=== PATIENT | female | born 1985 | race African-American/Black ===

== ENCOUNTER 2018-10-29 09:16 | Inpatient (IN) | payer BC, OTHER ==
[2018-10-29 09:49] VITALS: BMI 30.9
[2018-10-29] MEDS ORDERED: hydrALAZINE 20 MG/ML VIAL SLOW IVP PRN ×3 (10:21→16:17)
[2018-10-29] MEDS ORDERED: Betamet Acet/Betamet Na Ph 30 MG/5 ML VIAL IM SCH (10:30)
[2018-10-29] MEDS ORDERED: Betamet Acet/Betamet Na Ph 30 MG/5 ML VIAL ONE (10:33)
--- NOTE | 2018-10-29 10:38 | PDOC.FPROB ---
FMR OB H&P: HPI - History of Present Illness Chief Complaint: BPP 2/8 at outside facility Indentification: 33 year old at 35.1 wks by LMP/10.4 wk sono History of Present Illness: 33 year old at 35.1 wks by LMP/10.4 wk sono presents to L&D to for further evaluation/management after having BPP done this morning which was 2/8. Two points given only for gross movement. NATTY reported at checkout was <2 cm. However, received records which show DVP 2.47 cm. Breech presentation noted. Normal S/D ratio. Patient getting weekly testing for cHTN. She did not have a diagnosis of HTN prior to ; however, she had several elevated BP's in clinic prior to 20 wks and was subsequently diagnosed with cHTN. Patient checks BP at home and reports BP 120-130's/80's. Patient denies any other significant PMH. She endorses good fluid intake and movement. Patient denies vaginal bleeding, vaginal discharge, LoF, or contractions. Primary Care Physician: JOSE Perla FMR OB H&P: Current - Care : 2 Para: 1001 Gestational age: 35.1 wks Due date: 12/02/2018 Dating Criteria: LMP/10.4 wk sono - OB Labs Blood type: B RH: positive Antibody Screen: negative HIV: negative RPR: negative HepBsAg: negative Rubella: immune Gonorrhea: negative Chlamydia: negative Pap Smear: NILM, HPV negative 1 hour gtt: 106 GBS: unknown FMR OB H&P: History - Past Medical History PMH: cHTN Denies asthma, heart disease, or other significant PMH - OB History OB History: cHTN AMA at time of delivery - [employer] History [employer] History: No history of STD's or PID Patient with CIN2/HSIL in 2004, but had normal Pap smear during this - Surgical History Sx History: Denies - Social History Social History: Denies alcohol, tobacco, or drug use - Family History Family History: Denies any significant FH to include DM and HTN FMR OB H&P: Medications - Current Home Medications: Medication Instructions Recorded Confirmed Type Pnv No.95/Ferrous Fum/Folic AC 1 each PO DAILY 10/29/18 10/29/18 History [ [place]] Allergies/Adverse Reactions: Allergies Allergy/AdvReac Type Severity Reaction Status Date / Time No Known Allergies Allergy Unverified 10/29/18 09:50 FMR OB H&P: ROS - Review of Systems General: denies: fever/chills, weight/appetite/sleep changes ENT: denies: rhinorrhea, sore throat Cardiovascular: denies: chest pain, palpitation, edema Respiratory: denies: congestion, shortness of breath Gastrointestinal: denies: abdominal pain, diarrhea Genitourinary (Female): denies: dysuria, vaginal discharge, vaginal bleeding, contractions, vaginal pressure Musculoskeletal: denies: pain, stiffness Neurologic: denies: numbness, syncope, weakness Integumentary: denies: itching, rash Hematologic/Lymphatic: denies: prolonged or excessive bleeding Psychological: denies: depression, anxiety FMR OB H&P: Vital Signs - Maternal Vital signs: Vital Signs - First Documented Temp Pulse Resp BP Pulse Ox 98.5 F 109 H 18 149/93 H 96 10/29/18 09:29 10/29/18 09:29 10/29/18 09:29 10/29/18 09:29 10/29/18 09:29 - Heart Tones Baseline: 135 Variability: moderate Acceleration: present Deceleration: absent Category: category 1 [place] contractions every: None FMR OB H&P: Physical Exam - Physical Exam General: NAD, awake, alert and oriented HEENT: MMM, grossly normal vision, grossly normal hearing Heart: RRR, normal S1/S2 General: no respiratory distress Abdomen: soft, gravid Musculoskeletal: pulses present, FROM in all four extremities Neurological: no tremor, no focal deficit Skin: no rash, capillary refill <2 seconds Lymphatic: no unusual bruising or bleeding Psychiatric: intact recent and remote memory FMR OB H&P: A/P - Problem List (1) Chronic benign essential hypertension in third trimester Current Visit: Yes Status: Acute Code(s): O10.013 - PRE-EXISTING ESSENTIAL HTN COMP , THIRD TRIMESTER (2) AMA (advanced maternal age) multigravida 35+ Current Visit: Yes Status: Acute Code(s): O09.529 - SUPERVISION OF ELDERLY MULTIGRAVIDA, UNSPECIFIED TRIMESTER (3) Intrauterine Current Visit: Yes Status: Acute Code(s): Z34.90 - ENCNTR FOR SUPRVSN OF NORMAL , UNSP, UNSP TRIMESTER Disposition: 33 year old at 35.1 wks by LMP/10.4 wk sono presents with BPP 2/8 at outside facility 1. Pre-term intrauterine - 35.1 wks by LMP/10.4 wk sono - BPP 2/8 today in clinic; points only for movement - Will repeat BPP stat here in L&D - NST reactive with Cat I strip noted initially, however, decels have since been noted since patient has been on monitor - Betamethasone in anticipation of delivery - NATTY I 2.90 cm with DVP 2.47 cm - Patient declined Tdap and flu vaccines during 2. Breech presentation - NATTY 2.90 com with DVP 2.47 cm - Will plan for C/S if BPP not reassuring 3. AMA - Patient declined genetic screening on several occasions - Patient never followed with MFM as recommended Dispo: Plan for repeat BPP/NST. Will give steroids in anticipation of delivery. Further management pending BPP/NST. Discussion: Date/Time: 10/29/18 1036 This H&P was discussed with Dr. Nguyen who agrees with the above documentation and plan. [facility]: Time: 1100 I have reviewed the care of the patient. patient has been assessed by me. We are awaiting repeat BPP. Breech. If BPP abnormal...we will need CS delivery Signature: Radha Monae, DO PGY-3
[2018-10-29] MEDS ORDERED: Lactated Ringer's 1,000 ML IV SCH (11:30)
[2018-10-29] MEDS ORDERED: CEFAZOLIN 2 GM in Premix Bag 1 BAG IVPB SCH (11:30)
[2018-10-29] MEDS ORDERED: Ondansetron PF 4 MG/2 ML Vial IVP PRN ×3 (11:30→16:17)
[2018-10-29] MEDS ORDERED: Promethazine HCl 25 MG/ML VIAL IM PRN ×2 (11:30→15:32)
[2018-10-29] MEDS ORDERED: Acetaminophen 500 MG TAB PO PRN (11:30)
[2018-10-29] MEDS ORDERED: Bicitra 30 ML UDCUP PO SCH (11:30)
--- NOTE | 2018-10-29 11:37 | PDOC.EVN ---
Event Note - Event Note Event Note: BPP 4/8. 2 points for movement and 2 for tone. No points for breathing and NATTY. NATTY 3.7 cm with DVP 1.8 cm. Breech presentation. Patient initially refused steroid injection; however, after further discussion she is agreeable to it. Discussed need for C/S given breech presentation. C/S possibly to follow noon section given that there is a planned C/S at noon for a non-viable . NST is reactive and reassuring. Discussed this all with patient. She would like for her to be present for delivery. OBGYN Faculty: Awaiting patient's top arrive at her request. We are prepping for CS. Radha Monae, DO PGY-3
--- NOTE | 2018-10-29 11:53 | PDOC.EVN ---
Event Note - Event Note Event Note: NIKKI Faculty: Time: 1150 BPP was 2/ at [facility] and here it is 48...08/01 (as NST reactive). Per clinical interpretation: this is "probable acute asphyxia". Recommend urgent delivery.... As she is Breech...we recommend CS. Steroids prior to delivery but we will not await full benefit. Steve notified of this case. There is another CS scheduled at noon but that patient has not yet arrived to L& D. forcer maker agrees to have this patient go porior to that scheduled noon case.
--- NOTE | 2018-10-29 11:56 | ULT ---
ULTRASOUND BIOPHYSICAL PROFILE: DATE: 10/29/2018 HISTORY: 33-year-old female with abnormal biophysical profile score from outside facility. The dog sitter verbally gave the findings to Dr. Monae just prior to this dictation. COMPARISON: None available FINDINGS: Bowling. Presentation: Breech. Placenta: Maternal Right lateral. No placenta previa. Cervix: Closed and 4.5 cm in length. Amniotic fluid: NATTY 3.5 cm. heart rate: 130 bpm. breathin tone: 2 movement: 2 Amniotic fluid volume: 0 IMPRESSION: Abnormal biophysical profile score of 4 out of 8, excluding the nonstress test.
[2018-10-29] MEDS ORDERED: Bicitra 30 ML UDCUP ONE (12:31)
[2018-10-29 12:33] LABS: Hemoglobin 12.8 g/dL (12.0-16.0); Mean Corpuscular HGB CONC 33.5 g/dL (32.0-36.0); Mean Corpuscular Hemoglobin 32.5 pg (27.0-31.0); Mean Platelet Volume 9.6 fL (7.4-10.4); Platelet Count 144 thou/uL (130-400); RBC Distribution Width 12.2 % (11.5-14.5); Red Blood Cell (RBC) Count 3.94 mill/uL (4.20-5.40)
[2018-10-29] MEDS ORDERED: Oxytocin 10 UNITS/ML VIAL ONE (12:38)
[2018-10-29] MEDS ORDERED: MORPHINE 5 MG/10 ML PF VIAL ONE (12:38)
[2018-10-29] MEDS ORDERED: Fentanyl 100 MCG/2 ML VIAL ONE (12:38)
[2018-10-29 13:10] LABS: Syphilis Antibody Nonreactive (Nonreactive); Syphilis Antibody Index 0.22 S/CO (<1.00 Non-Reactive)
[2018-10-29 13:11] LABS: HBSAg Index 0.25 S/CO (0-0.99); Hep B Surf Ag Non-Reactive S/CO (NonReactive)
--- NOTE | 2018-10-29 13:56 | PDOC.OPDEL ---
OB Operative/Delivery Note Delivery Dr/Surgeon: Minda/Dov (Residents) Assist: Patrick (Faculty), Aman Marroquin (M3) Pre-Delivery Diagnosis: other (Abnormal BPP of 4/8; HX CHTN not on meds; Breech) Procedure/Post Delivery Dx: primary low transverse CS Weeks gestation: 35 Anesthesia: spinal - Findings A - 1 min: 8 - 5 min: 9 - Additional Findings/Plan Placenta delivered: spontaneous (disla, intact, 3vc) findings: low transverse hysterotomy without extension, normal uterus, normal tubes, normal ovaries, other (baby was vigorous; apgars 8/9...delievered Breech without difficulty (MAXIMO). Cord gas sent.) Estimated blood loss: 400 (QBL pending) Compilations/Other Findings: no complications noted NICU prsent; Uterus closed in 2 layers...embricating SKIN: RACHEL (SubCut tissue closed prior)
[2018-10-29] MEDS ORDERED: L&D-Morphine 4 MG/ML VIAL SLOW IVP PRN (15:32)
[2018-10-29] MEDS ORDERED: Promethazine HCl 25 MG SUPP PR PRN (15:32)
[2018-10-29] MEDS ORDERED: Naloxone HCl 0.4 mg/ml Vial IV PRN (15:32)
[2018-10-29] MEDS ORDERED: HYDROmorphone 2 MG/ML VIAL SLOW IVP PRN (15:32)
[2018-10-29] MEDS ORDERED: Naloxone HCl 0.4 mg/ml Vial IVP PRN ×2 (15:32)
[2018-10-29] MEDS ORDERED: Ondansetron HCl/PF 4 MG/2 ML Vial IVP PRN (15:32)
[2018-10-29] MEDS ORDERED: Meperidine HCl/PF 25 MG/ML VIAL SLOW IVP PRN (15:32)
[2018-10-29] MEDS ORDERED: diphenhydrAMINE 50 MG/ML VIAL IVP PRN (15:32)
[2018-10-29] MEDS ORDERED: Meperidine HCl/PF 25 MG/ML VIAL ONE (15:36)
[2018-10-29] MEDS ORDERED: Ketorolac Tromethamine 30 MG/ML VIAL IVP SCH (15:45)
[2018-10-29] MEDS ORDERED: Communication Order-Pharmacy FS SCH (15:45)
[2018-10-29] MEDS ORDERED: Ketorolac Tromethamine 30 MG/ML VIAL IVP PRN ×2 (16:00→18:00)
[2018-10-29] MEDS ORDERED: NS / Oxytocin 40 units/1000ml 1,000 ML IV SCH (16:17)
[2018-10-29] MEDS ORDERED: HYDROcodone/Acetaminophen 5/325 mg Tablet PO PRN ×2 (16:17)
[2018-10-29] MEDS ORDERED: Lanolin Ointment 7 GM TUBE TOP PRN (16:17)
[2018-10-29] MEDS ORDERED: diphenhydrAMINE 25 MG CAP PO PRN (16:17)
[2018-10-29] MEDS ORDERED: Simethicone Chewable 80 MG TAB PO PRN (16:17)
--- NOTE | 2018-10-29 21:17 | OP ---
DATE OF PROCEDURE: 10/29/2018 RESIDENT SURGEON: Edil Perla DO DELI BAKERY CLERK SURGEON: Radha Monae DO PROCEDURE PERFORMED: Primary low-transverse section. PREOPERATIVE DIAGNOSES: 1. intrauterine . 2. Oligohydramnios. 3. Breech presentation. 4. Biophysical profile 4/10 concerning for probable asphyxia. 5. Chronic hypertension POSTOPERATIVE DIAGNOSES: 1. intrauterine , delivered. 2. Oligohydramnios. 3. Breech presentation. 4. Biophysical profile 4/10 concerning for probable asphyxia. 5. Chronic hypertension ANESTHESIA: Spinal. INDICATIONS: The patient is a 33-year-old, G2, P1-0-0-1 female at 35 and 1 week by LMP and first trimester ultrasound, who presents for a primary low-transverse section secondary to nonreassuring BPP and oligohydramnios with breech presentation. DESCRIPTION OF PROCEDURE: After risks, benefits, alternatives were explained to the patient, she gave informed consent. Preoperative antibiotics included Ancef 2 g IV. The patient was taken to the operating room and spinal anesthesia was initiated. She was placed in the supine position with a left tilt, prepped and draped in usual sterile fashion. Pfannenstiel incision was made with a scalpel, carried down to the level of fascia, which was sharply nicked. The fascial cut was extended bilaterally with Rdz scissors. The inferior and superior edges of the cut fascial edges were elevated with Mauricio clamps and the underlying rectus muscles were sharply and bluntly dissected free. The recti were divided digitally and retracted manually. Peritoneum was then entered bluntly and retracted manually. An Flip O retractor was placed. A low transverse score was made with a scalpel and the uterus was entered in midline with a scalpel. Clear fluid was seen. The hysterotomy was extended manually. The infant was noted to be breech and was easily delivered. The mouth and nares were bulb suctioned. The cord clamp was clamped and cut and grossly normal female infant was handed to awaiting nurse. Cord blood was obtained in addition to a cord gas. The placenta was spontaneously delivered, found to be intact with 3-vessel cord, and sent to lab for pathology review. The endometrium was curetted with a dry lap. The uterus was closed with a running locking 1 Monocryl suture followed by a running nonlocking 1 Monocryl imbricating suture. Following this, hemostasis was noted. The abdomen was irrigated with saline, suctioned free of clots. The uterus was then internalized and the hysterotomy was again noted to be hemostatic. The peritoneum was closed with 3-0 chromic suture in a running fashion. Subsequently, the fascia was closed with a running nonlocking 1 PDS suture. Subcutaneous tissue was irrigated and there were no bleeders. The skin was approximated with evan and a pressure dressing was placed. All counts were correct. The patient tolerated the procedure well and was taken to recovery room in stable condition. QUANTITATIVE BLOOD LOSS: 499 mL. COMPLICATIONS: None. SPECIMENS: Cord blood sent to lab for blood type. Cord gas sent for evaluation. Placenta sent for pathology review. FINDINGS: 1. Grossly normal female infant with Apgars of 8 and 9. Time of delivery 1315 hours. 2. Grossly normal placenta with 3-vessel cord, sent to lab for pathology review. DRAINS: [place] to gravity, draining clear urine. Job ID: [id number] MTDD
[2018-10-29] MEDS ORDERED: Ibuprofen 800 MG TAB PO SCH (22:00)
--- NOTE | 2018-10-30 06:18 | PDOC.PP ---
Post Progress Note Post Day #: 1 Subjective: 33 yo now PO day 1 s/p pLTCS. Pt doing well and no complaints. Pain currently well controlled. PO intake tolerated: yes Flatus: yes Ambulation: yes Vital Signs (12 hours) Temp Pulse Resp BP Pulse Ox 10/30/18 04:00 97.9 F 72 18 112/56 L 10/30/18 01:00 98.1 F 61 18 126/73 10/29/18 20:30 97.9 F 73 18 118/62 97 10/29/18 18:40 60 16 137/72 Weight Weight 81.647 kg - Physical Examination General: NAD Cardiovascular: no m/r/g, RRR Respiratory: clear to auscultation bilaterally, non-labored breathing Abdominal: + bowel sounds, lochia, no distention, appropriately TTP Skin: CS incision dry & intact, no rash Neurological: no gross focal deficits Psychiatric: normal affect Result Diagrams: 10/29/18 12:08 Additional Labs: Post Labs Blood Type B POSITIVE 10/29/18 16:05 Hep Bs Antigen Non-Reactive S/CO (NonReactive) 10/29/18 12:08 (1) delivery delivered Code(s): O82 - ENCOUNTER FOR DELIVERY WITHOUT INDICATION Status: Acute (2) Chronic benign essential hypertension in third trimester Code(s): O10.013 - PRE-EXISTING ESSENTIAL HTN COMP , THIRD TRIMESTER Status: Acute (3) AMA (advanced maternal age) multigravida 35+ Code(s): O09.529 - SUPERVISION OF ELDERLY MULTIGRAVIDA, UNSPECIFIED TRIMESTER Status: Acute - Assessment/Plan 1) s/p pLTCS - pt doing well and pain well controlled - ambulating, tolerating po and passing flatus - cont routine pp care - desires breast feeding will consult as baby having difficulty maintaining latch - anticipate possible dc tomorrow vs Wed if BP remains stable 2) cHTN: - pt spiked elevated pressure PP yesterday; however, recheck WNL - BP currently stable - no headache, cp, sob, [place] 3) AMA - aware -declined quad
[2018-10-30 06:44] LABS: Hemoglobin 12.1 g/dL (12.0-16.0); Mean Corpuscular HGB CONC 32.6 g/dL (32.0-36.0); Mean Corpuscular Hemoglobin 31.6 pg (27.0-31.0); Mean Corpuscular Volume 96.7 fL (78.0-98.0); Mean Platelet Volume 9.8 fL (7.4-10.4); Platelet Count 143 thou/uL (130-400); RBC Distribution Width 12.4 % (11.5-14.5); Red Blood Cell (RBC) Count 3.83 mill/uL (4.20-5.40); White Blood Cell (WBC) Count 15.9 thou/uL (4.8-10.8)
[2018-10-30] MEDS: Docusate Calcium (SURFAK) 240 MG CAP PO SCH ×3 (08:18→21:40)
[2018-10-30] MEDS: Ferrous Sulfate 325 MG TAB PO SCH ×3 (08:18→21:39)
[2018-10-30] MEDS: Prenatal Vitamin 1 TAB PO SCH (08:31)
[2018-10-30] MEDS ORDERED: Adacel (T-DAP) 0.5 ML SYRINGE IM ONE (09:00)
[2018-10-30] MEDS: Ibuprofen 800 MG TAB PO SCH ×2 (15:01→21:40)
[2018-10-31] MEDS: Ibuprofen 800 MG TAB PO SCH (05:59)
--- NOTE | 2018-10-31 06:23 | PDOC.PP ---
Post Progress Note Post Day #: 2 Subjective: 33 yo G2 now p2 pp day 2 s/p pLTCS /06/03 bpp and breech presentation. Pt is doing well and pain well controlled. BP has remained stable. No cp, sob, headache. PO intake tolerated: yes Flatus: yes Ambulation: yes Vital Signs (12 hours) Temp Pulse Resp BP Pulse Ox 10/31/18 03:31 98.1 F 69 18 113/69 97 10/30/18 23:30 97.3 F L 81 18 124/60 97 10/30/18 20:05 97.6 F 78 18 121/58 L 97 Weight Weight 81.647 kg - Physical Examination General: NAD Cardiovascular: no m/r/g, RRR Respiratory: clear to auscultation bilaterally, non-labored breathing Abdominal: + bowel sounds, no distention, appropriately TTP Skin: CS incision dry & intact, no rash Neurological: no gross focal deficits Psychiatric: normal affect Result Diagrams: 10/30/18 05:59 Additional Labs: Post Labs Blood Type B POSITIVE 10/29/18 16:05 Hep Bs Antigen Non-Reactive S/CO (NonReactive) 10/29/18 12:08 (1) delivery delivered Code(s): O82 - ENCOUNTER FOR DELIVERY WITHOUT INDICATION Status: Acute (2) Chronic benign essential hypertension in third trimester Code(s): O10.013 - PRE-EXISTING ESSENTIAL HTN COMP , THIRD TRIMESTER Status: Acute (3) AMA (advanced maternal age) multigravida 35+ Code(s): O09.529 - SUPERVISION OF ELDERLY MULTIGRAVIDA, UNSPECIFIED TRIMESTER Status: Acute - Assessment/Plan 1) s/p pLTCS - pt doing well and pain well controlled - ambulating, tolerating po and passing flatus - will plan for DC today as BP well controlled and pain well controlled 2) cHTN: - bp stable - asymptomatic - ok for DC to home 3) AMA - aware -declined quad Dispo: Stable. Pts bp remain WNL, will plan for DC to home today. Addendum - Attending - Attending Attestation Date/Time: 10/31/18 0422 I evaluated the patient and discussed the management with Dr. Perla. I agree with the Assessment and Plan documented above.
[2018-10-31] MEDS: Docusate Calcium (SURFAK) 240 MG CAP PO SCH (08:24)
[2018-10-31] MEDS: Prenatal Vitamin 1 TAB PO SCH (08:24)
[2018-10-31] MEDS: Ferrous Sulfate 325 MG TAB PO SCH (08:27)
[2018-10-31 11:33] VITALS: BP 128/66; TEMP 98.2
== END 2018-10-31 12:12 | disposition home or self-care (01) | DRG 787 ==
LOC: L&D/OP 09:16 → L&D 11:26 → 3SW 17:12
PROVIDERS: ADMIT Obstetrics & Gynecology; ATTEND Obstetrics & Gynecology
PROC: 10D00Z1 Extraction of Products of Conception, Low, Open Approach (ICD-10-PCS; principal; 2018-10-29)
DX: O32.1XX0 Maternal care for breech presentation, not applicable or unspecified (principal); O10.92 Unspecified pre-existing hypertension complicating childbirth; O41.03X0 Oligohydramnios, third trimester, not applicable or unspecified; Z3A.35 35 weeks gestation of pregnancy; Z37.0 Single live birth; O76 Abnormality in fetal heart rate and rhythm complicating labor and delivery
CPT/HCPCS: 36415; 51702; 76819; 82805; 85027; 86780; 86850; 86900; 86901; 87340; 88307; 99285; J0690; J0702; J2175; J2274; J2590; J3010